=== PATIENT | female | born 1940 | race Caucasian/White ===

== ENCOUNTER 2018-06-13 14:29 | Emergency (ER) | payer MEDICARE, MEDICAID, SELFPAY ==
[2018-06-13] VITALS (31 sets, daily range): BP systolic 143–152; BP diastolic 38–55; PULSE 81–90; RESP 18–37; TEMP 36.5; O2SAT 83–100
[2018-06-13] MEDS: Normal Saline 1,000 ML 1000 ML IV (14:30)
[2018-06-13 15:21] LABS: Abs Immature Grans 0.04 k/cumm (0.0-0.09); Absolute Basophil Count 0.03 k/cumm (0.0-0.2); Absolute Eosinophil Count 0.18 k/cumm (0.0-0.7); Absolute Monocyte Count 0.52 k/cumm (0.11-0.7); Basophils % 0.2; Eosinophils % 1.1; HCT 37.5 % (36.0-46.0); HGB 12.3 g/dL (12.0-15.5); Immature Grans % 0.2; Lactate-non-spesis 2.3 mmol/L (0.6-1.4); Mean Corp. HGB Concentration 32.8 g/dL (32.0-36.0); Mean Corpuscular Hemoglobin 29.4 pg (27.0-33.0); Mean Corpuscular Volume 89.5 fL (80-95); Monocytes % 3.1; Neutrophils % 90.4; Platelet Count 251 x1000/uL (130-400); RBC 4.19 m/cumm (4.00-5.20); RBC Distribution Width 15.9 % (11.7-14.6); White Blood Cell Count 16.66 k/cumm (4.4-10.8)
[2018-06-13 15:23] LABS: Absolute Lymphocyte Count 0.83 k/cumm (1.2-3.4); Absolute Neutrophil Count 15.06 k/cumm (1.2-6.7)
[2018-06-13 15:43] LABS: Magnesium 1.8 mg/dL (1.8-2.4)
[2018-06-13 15:46] LABS: NT-proBNP 5173 pg/mL
[2018-06-13 15:55] LABS: Troponin I 0.07 ng/mL (0.00-0.06)
[2018-06-13 16:02] LABS: ALT 13 U/L (12-78); AST 18 U/L (15-37); Albumin 2.3 g/dL (3.4-5.0); Alkaline Phosphatase 94 U/L (46-116); Anion Gap 8.8 mmol/L (3-11); BUN 13 mg/dL (7-18); Bilirubin, Total 0.8 mg/dL (0.2-1.0); CO2 30.2 mmol/L (21.0-32.0); CREATININE 0.83 mg/dL (0.55-1.02); Chloride 102 mmol/L (98-107); Glucose 304 mg/dL (70-100); Potassium 3.2 mmol/L (3.5-5.1); Sodium 141 mmol/L (136-145); Total Protein 6.5 g/dL (6.4-8.2)
--- NOTE | 2018-06-13 16:08 | W.ED.GENAD ---
Discharge Plan Disposition Patient Disposition: HOME Condition: Stable Discharge Details Chief Complaint: RespSymp Clinical Impression: Pneumonia, Elevated brain natriuretic peptide (BNP) level, Elevated troponin Reason For Visit: ALPHONSE Primary Care Provider: Ольга Tolbert ED Provider: Parisa Underwood Home Meds and New Rx's Prescriptions: No Action omeprazole 20 MG tablet,delayed release (DR/EC) 20 mg PO DAILY PRNRF: 0 latanoprost [Xalatan] 2.5 ML drops 1 drp Ophthalmic HS RF: 0 buspirone 5 mg Tablet 2.5 mg PO DAILY RF: 0 acetaminophen 325 mg Tablet 650 mg PO PRN PRNRF: 0 divalproex [Depakote] 125 mg Tablet,Delayed Release (Dr/Ec) 375 mg PO BID RF: 0 folic acid 1 mg Tablet 2 mg PO DAILY RF: 0 hydroxychloroquine 200 mg Tablet 200 mg PO DAILY RF: 0 escitalopram oxalate [Lexapro] 10 mg Tablet 15 mg PO DAILY RF: 0 insulin glargine [Lantus Solostar U-100 Insulin] 100 unit/mL (3 mL) Insulin Pen 10 units subcut HS RF: 0 quetiapine [Seroquel] 25 mg Tablet 50 mg PO DAILY RF: 0 methotrexate sodium [Trexall] 10 mg Tablet 10 mg PO QWEEK RF: 0 sennosides-docusate sodium [Senna with Docusate Sodium] 8.6-50 mg Tablet 2 tab PO DAILY RF: 0 insulin aspart U-100 [Novolog U-100 Insulin aspart] 100 unit/mL Solution subcut AC RF: 0 lidocaine [Lidoderm] 5 % Adhesive Patch,Medicated 1 patch Topical DAILY RF: 0 lorazepam 1 mg Tablet 1 mg PO HS RF: 0 timolol maleate [Timoptic] 0.5 % Drops 1 drp ophthalmic (eye) BID RF: 0 metoprolol tartrate 25 mg Tablet 12.5 mg PO BID RF: 0 Discharge Instructions Instructions: Pneumonia (ED) Additional Instructions: Take the antibiotics until finished. Continue neb treatments as directed. Return to the emergency department any worsening or new concerning symptoms. Discharge Data Discharge Physician: Parisa Underwood Medical Decision Making 78yo F from [facility] who presents with hypoxia and chest congestion sent by Dr. Armstrong to r/o pneumonia. O2 sat on arrival on RA 83%, increased to 100% on 3L. RR 30s. Diminished breath sounds at bases. No leg swelling. Will place an iv, ivf, labs, ekg, cxr and duoneb. 1600 -- labs and imaging reviewed --white blood cell count 16, potassium 3.2, glucose 304, lactate 2.3, troponin 0.07, BNP 5173. Chest x-ray notes a right lower lobe pneumonia but appears to have pleural effusions. Dose of Lasix and IV Levaquin ordered. Heart rate 80s. O2 sat 97% on 3 L. Respiratory rate ranges between 15-25. Stable blood pressure. 1710 -- d/w Dr. Armstrong at rehab - will transfer back w/ IV and plan to continue IV Levaquin. Also will plan on continued neb treatment. Discussed elevated BNP and possible CHF. Suspect elevated/indeterminate troponin due to demand ischemia due to pneumonia. Recommend continued IV fluids. CXR read as RLL pneumonia, no pleural effusions. Medical Records Medical records reviewed: Yes I reviewed the patient's medical records. Imaging Data Radiologic Study: Radiologist's impression: XR Chest, 2 Views EXAM DATE/TIME: 06/13/2018 2:38 PM FINDINGS: Lungs: Right lower lobe consolidation consistent with pneumonia. Prominent reticular markings within the lung bases consistent with interstitial disease (acute versus chronic). The pulmonary vasculature is unremarkable. Pleural space: No pleural effusion or pneumothorax is identified. Heart/Mediastinum: Unremarkable. No cardiomegaly. Bones/joints: Unremarkable. IMPRESSION: 1. Right lower lobe consolidation consistent with pneumonia. 2. Interstitial lung disease, nonspecific. Lab Data Lab results reviewed: Yes I reviewed the patient's lab results. ECG Data Attestation: I personally reviewed and interpreted this ECG (s) as follows: Interpretation: EKG notes a rate of 85, sinus, left anterior fascicular block, no acute ST elevation or depression, QTC 490, QRS 110. HPI General Mode of arrival: EMS. Date/Time Provider Initiated Documentation: 06/13/18 14:36. Limitations to Documentation: altered mental status. Information obtained by: patient and family. HPI Narrative: Pt is a 78yo F with a history of a's, dementia, hypertension, hyperlipidemia, GERD and depression who presents for hypoxia and decreased appetite today. states he attempted to feed her this morning and she did not want to eat. He also stated it seemed like she had phlegm in her chest . Oxygen saturation 84% on room air at [facility]. states patient has not walked since February due to lower back pain. She transfers from the wheelchair in bed. She is also had increased fatigue today. Unknown fever. States patient ate well yesterday. Dr. Armstrong from rehab called sending patient over here to rule out possible pneumonia. Pt is DNR/DNI, does not want pressors and sent here per request from for antibiotics and evaluation. Related Data Home Medications Medication Instructions Recorded Confirmed latanoprost [Xalatan] 1 drp OPHTHALMIC HS 01/17/14 06/13/18 omeprazole 20 mg PO DAILY PRN 01/17/14 02/13/14 acetaminophen 650 mg PO PRN PRN 06/13/18 06/13/18 buspirone 2.5 mg PO DAILY 06/13/18 06/13/18 divalproex [Depakote] 375 mg PO BID 06/13/18 06/13/18 escitalopram oxalate [Lexapro] 15 mg PO DAILY 06/13/18 06/13/18 folic acid 2 mg PO DAILY 06/13/18 06/13/18 hydroxychloroquine 200 mg PO DAILY 06/13/18 06/13/18 insulin aspart U-100 [Novolog 0 unit SUBCUT AC 06/13/18 06/13/18 U-100 Insulin aspart] insulin glargine [Lantus Solostar 10 units SUBCUT HS 06/13/18 06/13/18 U-100 Insulin] lidocaine [Lidoderm] 1 patch TOPICAL DAILY 06/13/18 06/13/18 lorazepam 1 mg PO HS 06/13/18 06/13/18 methotrexate sodium [Trexall] 10 mg PO QWEEK 06/13/18 06/13/18 metoprolol tartrate 12.5 mg PO BID 06/13/18 06/13/18 quetiapine [Seroquel] 50 mg PO DAILY 06/13/18 06/13/18 sennosides-docusate sodium [Senna 2 tab PO DAILY 06/13/18 06/13/18 with Docusate Sodium] timolol maleate [Timoptic] 1 drp OPHTHALMIC (EYE) BID 06/13/18 06/13/18 Allergies Allergy/AdvReac Type Severity Reaction Status Date / Time No Known Allergies Allergy Unverified 02/13/14 06:16 General Stated Complaint: RespSymp MICAELA: 2 Review of Systems Review of Systems All systems reviewed & are unremarkable except as noted in HPI and below Constitutional Reports as per HPI, Denies chills, Denies fever(s) and Reports poor appetite Eyes Denies blurry vision ENT Denies dizziness, Denies sore throat and Denies throat swelling Cardiovascular Denies chest pain and Reports dyspnea Respiratory Reports dyspnea Gastrointestinal Denies abdominal pain, Denies diarrhea and Denies vomiting Genitourinary Denies hematuria and Denies dysuria Musculoskeletal Denies back pain and Denies numbness Integumentary/Breasts Denies lesions and Denies rash Neurologic Denies dizziness and Denies numbness Allergic/Immunologic Denies throat swelling PFSH Hyperlipemia (Acute) Dementia (Chronic) Depression (Chronic) Diabetes (Chronic) GERD (gastroesophageal reflux disease) (Chronic) HTN (hypertension) (Chronic) History of hysterectomy (Chronic) S/P cervical spinal fusion (Acute) H/O section (Chronic) History of cataract surgery (Chronic) Medical History Hyperlipemia (Acute) Dementia (Chronic) Depression (Chronic) Diabetes (Chronic) GERD (gastroesophageal reflux disease) (Chronic) HTN (hypertension) (Chronic) History of hysterectomy (Chronic) Social History Smoking/Tobacco Use Status: Never Surgical History S/P cervical spinal fusion (Acute) H/O section (Chronic) History of cataract surgery (Chronic) Social History Smoking/Tobacco Use Status: Never alcohol intake: never substance use type: does not use Exam Const General: no acute distress and other (sleeping) HENMT Head: normal to inspection Mouth: oral mucosae normal Eyes General: appearance normal, both eyes and all related structures Neck Neck: normal visual inspection Resp Effort & Inspection: pursed lip breathing and tachypneic Auscultation: diminished lung sounds bilaterally in the lower lung collins Cardio Rate: regular rate Rhythm: regular rhythm GI Palpation: soft, not firm and nontender Auscultation: hypoactive bowel sounds Skin General skin exam: no rashes or lesions noted Neuro General: other (sleeping, states only speaks to him) Motor: muscle tone normal throughout Extrem General: normal to inspection, full ROM and no edema Course Vital Signs Temperature 97.7 F 06/13/18 14:32 Pulse 90 06/13/18 14:32 Respiratory Rate 34 H 06/13/18 14:32 Blood Pressure 143/38 H 06/13/18 14:32 Pulse Oximetry 83 L 06/13/18 14:32 Temperature 97.7 F 06/13/18 14:32 Temperature Source Temporal Artery Scan 06/13/18 14:32 Pulse 90 06/13/18 14:32 Respiratory Rate 34 H 06/13/18 14:32 Respiratory Effort 06/13/18 14:35 Respiratory Depth Normal 06/13/18 14:35 Blood Pressure 143/38 H 06/13/18 14:32 Blood Pressure Position Supine 06/13/18 14:32 Pulse Oximetry 83 L 06/13/18 14:32 Oxygen Delivery Method Room Air 06/13/18 14:32 Oxygen Flow Rate 0 06/13/18 14:32 Lab/Test Results Lab/Test Results: 06/13/18 15:55 Blood Blood Culture - Pending 06/13/18 15:40 Blood Blood Culture - Pending Laboratory Tests Range/Units 06/13/18 06/13/18 06/13/18 14:36 14:50 14:50 WBC (4.4-10.8) k/cumm 16.66 H RBC (4.00-5.20) m/cumm 4.19 Hgb (12.0-15.5) g/dL 12.3 Hct (36.0-46.0) % 37.5 MCV (80-95) fL 89.5 MCH (27.0-33.0) pg 29.4 MCHC (32.0-36.0) g/dL 32.8 RDW (11.7-14.6) % 15.9 H Plt Count (130-400) x1000/uL 251 MPV (8.0-11.0) fL 9.0 Immature Gran % 0.2 Neutrophils % 90.4 Lymphocytes % 5.0 Monocytes % 3.1 Eosinophils % 1.1 Basophils % 0.2 Absolute Neutrophils (1.2-6.7) k/cumm 15.06 H Absolute Lymphocytes (1.2-3.4) k/cumm 0.83 L Absolute Monocytes (0.11-0.7) k/cumm 0.52 Absolute Eosinophils (0.0-0.7) k/cumm 0.18 Absolute Basophils (0.0-0.2) k/cumm 0.03 Sodium (136-145) mmol/L 141 Potassium (3.5-5.1) mmol/L 3.2 L Chloride (98-107) mmol/L 102 Carbon Dioxide (21.0-32.0) mmol/L 30.2 Anion Gap (3-11) mmol/L 8.8 BUN (7-18) mg/dL 13 Creatinine (0.55-1.02) mg/dL 0.83 Estimated GFR/1.73 m2 (mL/min/1.73m2) >= 60.00 Glucose (70-100) mg/dL 304 H Lactate (0.6-1.4) mmol/L Calcium (8.5-10.1) mg/dL 9.0 Magnesium (1.8-2.4) mg/dL 1.8 Total Bilirubin (0.2-1.0) mg/dL 0.8 AST (15-37) U/L 18 ALT (12-78) U/L 13 Alkaline Phosphatase (46-116) U/L 94 Troponin I (0.00-0.06) ng/mL 0.07 H NT-Pro-B Natriuret Pep ( - 299) pg/mL Total Protein (6.4-8.2) g/dL 6.5 Albumin (3.4-5.0) g/dL 2.3 L Range/Units 06/13/18 06/13/18 14:50 14:50 WBC (4.4-10.8) k/cumm RBC (4.00-5.20) m/cumm Hgb (12.0-15.5) g/dL Hct (36.0-46.0) % MCV (80-95) fL MCH (27.0-33.0) pg MCHC (32.0-36.0) g/dL RDW (11.7-14.6) % Plt Count (130-400) x1000/uL MPV (8.0-11.0) fL Immature Gran % Neutrophils % Lymphocytes % Monocytes % Eosinophils % Basophils % Absolute Neutrophils (1.2-6.7) k/cumm Absolute Lymphocytes (1.2-3.4) k/cumm Absolute Monocytes (0.11-0.7) k/cumm Absolute Eosinophils (0.0-0.7) k/cumm Absolute Basophils (0.0-0.2) k/cumm Sodium (136-145) mmol/L Potassium (3.5-5.1) mmol/L Chloride (98-107) mmol/L Carbon Dioxide (21.0-32.0) mmol/L Anion Gap (3-11) mmol/L BUN (7-18) mg/dL Creatinine (0.55-1.02) mg/dL Estimated GFR/1.73 m2 (mL/min/1.73m2) Glucose (70-100) mg/dL Lactate (0.6-1.4) mmol/L 2.3 H Calcium (8.5-10.1) mg/dL Magnesium (1.8-2.4) mg/dL Total Bilirubin (0.2-1.0) mg/dL AST (15-37) U/L ALT (12-78) U/L Alkaline Phosphatase (46-116) U/L Troponin I (0.00-0.06) ng/mL NT-Pro-B Natriuret Pep ( - 299) pg/mL 5173 H Total Protein (6.4-8.2) g/dL Albumin (3.4-5.0) g/dL
[2018-06-13] MEDS: Albuterol/Ipratropium 3 ML UPD VIAL UPD (16:24)
[2018-06-13] MEDS: Furosemide 40 MG/4 ML VIAL IVP (16:25)
--- NOTE | 2018-06-13 16:35 | DI.VRAD_ITS ---
EXAM: XR Chest, 2 Views EXAM DATE/TIME: 06/13/2018 2:38 PM CLINICAL HISTORY: 78 years old, female; Signs and symptoms; Other: Fever, pain, hypoxia TECHNIQUE: XR of the chest, 2 views. COMPARISON: No relevant prior studies available. FINDINGS: Lungs: Right lower lobe consolidation consistent with pneumonia. Prominent reticular markings within the lung bases consistent with interstitial disease (acute versus chronic). The pulmonary vasculature is unremarkable. Pleural space: No pleural effusion or pneumothorax is identified. Heart/Mediastinum: Unremarkable. No cardiomegaly. Bones/joints: Unremarkable. IMPRESSION: 1. Right lower lobe consolidation consistent with pneumonia. 2. Interstitial lung disease, nonspecific. Dictated and Authenticated by: Martell Brown MD. Ordering:RICCO ANDERS MD
[2018-06-13] MEDS: LEVOFLOXACIN 750 MG/150 ML BAG 100 MG IVPB (16:40)
--- NOTE | 2018-06-13 19:18 | DI.RAD_ITS ---
SYMPTOM/DIAGNOSIS: FEVER, COUGH, HYPOXIA AP AND LATERAL CHEST: There are no prior comparison exams. The heart size is normal. The lungs are suboptimally inflated. There are increased densities at both lung bases, right greater than left. The findings could represent pneumonia vs asymmetric pulmonary edema. There are mild underlying interstitial changes. IMPRESSION: Findings suspicious for bibasilar pneumonia.
== END 2018-06-13 18:29 | disposition home or self-care (01) ==
LOC: ER 18:31
PROVIDERS: Emergency Medicine; Emergency Provider Physician Assistant; PCP Legal Medicine
DX: R09.02 Hypoxemia (principal); J18.9 Pneumonia, unspecified organism; R79.89 Other specified abnormal findings of blood chemistry; R77.8 Other specified abnormalities of plasma proteins; E11.9 Type 2 diabetes mellitus without complications; Z79.4 Long term (current) use of insulin; I10 Essential (primary) hypertension
CPT/HCPCS: 36415; 80053; 87040; 93005; 94640; 96361; 96365; 96375; 99284; 71046; 83605; 83735; 83880; 84484; 85025; 93010; 99285; J1940; J1956; J7620